=== PATIENT | male | born 1945 ===

== ENCOUNTER → 2022-01-31 07:50 | Outpatient (BNVA) | payer MEDICARE, SELFPAY | PROVIDERS: PCP Internal Medicine; Visit Provider Psychiatry & Neurology Neurology | DX: G25.0 Essential tremor (principal) | CPT/HCPCS: 99202 ==

== ENCOUNTER 2022-02-26 08:46 | Outpatient (REF) | payer MEDICARE, SELFPAY ==
--- NOTE | ~2022-02-26 | MR_ITS ---
MRI OF THE BRAIN WITHOUT IV CONTRAST INDICATION: Essential tremor. COMPARISON: None. TECHNIQUE: Multiplanar multisequence MR imaging of the brain was obtained without IV contrast. FINDINGS: There is no hydrocephalus, extra-axial surface collection, or herniation. 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 The major flow voids at the skull base are preserved. There is no acute infarct on diffusion-weighted imaging. There is no intracranial hemorrhage on the gradient recalled echo acquisition. The midline structures are normal. The cerebellar tonsils are normally positioned. The cerebellum and brainstem are normal. The craniocervical junction is normal. Osseous marrow signal intensity is homogenous. The visualized soft tissues are unremarkable. MR/MR head/brain wo con IMPRESSION: - There are no acute intracranial findings. 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
--- NOTE | ~2022-02-26 | XR_ITS ---
EXAMINATION: PRE-MRI ORBITS CLINICAL INFORMATION: Patient with piece of metallic hammer about the left side of the nose since he has had as a child. Patient has had brain MRI in the past without problem. COMPARISON: None TECHNIQUE: Three-view orbits FINDINGS: There is a 4 x 1 mm metallic density seen in bed and within the left lateral nasal wall. This is not within the orbit. The paranasal sinuses appear unremarkable. No bony abnormality appreciated. XR/XR pre mri screening IMPRESSION: Embedded 4 x 1 mm metallic density in left lateral nasal wall which is not within the orbit.
== END 2022-02-26 08:47 | disposition home or self-care (01) ==
LOC: HO.MRI 08:46
PROVIDERS: Visit Provider Psychiatry & Neurology Neurology
DX: G25.0 Essential tremor (principal)
CPT/HCPCS: 70551